=== PATIENT | male | born 1995 | race African-American/Black ===

== ENCOUNTER 2018-11-05 14:23 | Inpatient (IN) ==
--- NOTE | 2018-11-05 14:50 | Emergency Department Note ---
Disposition Clinical Impression: Pneumothorax on left Disposition: Admitted As Inpatient Condition: Good Time of Disposition: 15:49 General Adult HPI - General Chief complaint: ED Shortness of Breath/Dyspnea Time Seen by Provider: 11/05/18 14:27 Source: patient Mode of arrival: EMS Limitations: no limitations Nursing Notes Reviewed: Yes Vital Signs Reviewed: Yes - History of Present Illness HPI Narrative: Patient is a 23-year-old male who is presenting for shortness of breath. Patient with no past medical history, he has a chronic smoker. Patient states that he was sitting at [employer], turned to his left, immediately had chest pain to the left side of his chest with shortness of breath. Patient was seen at [facility], at that point in time I did a chest x-ray which showed a pneumothorax to the left side. He was sent here for further definitive treatment and care. Patient at this point in time denies any further pain other than left sided chest pain, he has slight shortness of breath, no recent fevers, chills or history of pneumothorax in the past. Pain Scale: 10 - Related Data Home Medications Medication Instructions Recorded Confirmed No Known Home Drugs 11/05/18 11/05/18 Allergies Allergy/AdvReac Type Severity Reaction Status Date / Time Amoxicillin [From Amoxil] Allergy Swelling Verified 10/03/15 14:50 of Lip/Tongue/Throat Review of Systems: In addition to that documented in the HPI above, the additional ROS was obtained: General: Denies fever. Denies chills. Denies weight loss. Denies behavioral change. Eyes: Denies visual changes. ENT: Denies nasal congestion. Denies sore throat. Denies hearing change. Cardio: Affirms chest pain. Denies palpitations. Respiratory: Denies cough. Denies shortness of breath. Denies wheezing. GI: Denies nausea, Denies vomiting, or diarrhea. Denies hematochezia denies melena. Denies abdominal pain. : Denies dysuria, hematuria, or urinary retention MSK: Denies back pain. Denies joint swelling. Neuro: Denies slurred speech. Denies numbness or tingling. Denies focal weakness . Denies headache. Denies loss of consciousness. Psych: Denies mood changes. All systems ED: reviewed and negative except as stated. Review of Systems: As Per HPI Past Medical History - Past Medical History Medical history: Reports: no medical history Psychiatric history: Reports: no psych history - Social History Smoking Status: Current every day smoker Smokeless Tobacco Status: No Alcohol use: Reports: none Drug use: Reports: none Physical Exam General: Conversant. No apparent distress. Follow commands. Appears stated age. Neck: No JVD. Trachea midline. Neck supple. Eyes: PERRL. No scleral icterus. HENT: Normocephalic and atraumatic. Moist mucus membranes. Cardiovascular: Regular rate and rhythm. Normal S1 and S2. No murmurs appreciated. Normal capillary refill. Extremities well perfused with 2+ distal pulses bilaterally. No edema. Pulmonary: Patient with absent breath sounds to the left side, right-sided breath sounds are clear to auscultation. No wheezes, rales, or rhonchi. Not in respiratory distress. Speaks in full sentences. Abdomen: Soft, nondistended, without tenderness. No bruits or masses. No guarding or rebound. Neuro: Alert and oriented x3. No slurred speech. No focal deficits noted. Skin: No rashes noted on visualized skin. Musculoskeletal: No bony abnormalities visualized. Moves all extremities. Psych: Normal mood. Pleasant. Makes appropriate eye contact. - General General appearance: alert Course Vital Signs Temperature 98.2 F 11/05/18 14:33 Pulse Rate 101 11/05/18 14:33 Respiratory Rate 24 11/05/18 14:33 Blood Pressure 100/60 11/05/18 14:33 O2 Sat by Pulse Oximetry 100 11/05/18 14:33 Temperature 98.2 F 11/05/18 14:33 Pulse Rate 68 11/05/18 16:13 Respiratory Rate 22 11/05/18 16:13 Blood Pressure 119/76 11/05/18 16:13 O2 Sat by Pulse Oximetry 100 11/05/18 16:13 Oxygen Delivery Oxygen Delivery Nasal Cannula Procedures - Chest Tube Chest Tube 1 Chest Tube Location: mid axillary line Size of Tube (cm): 8 Chest Tube Prep: betadine prep, sterile drapes applied Local Anesthetic: lidocaine 1% Amount of Anesthesia Used (mL): 6 Incision Made With: #10 blade Post Procedure: sutured to skin, sterile dressing applied Tube Drainage: none Post Procedure CXR?: Yes Patient Tolerated Procedure: Yes Medical Decision Making - [facility] Narrative Medical decision making narrative: Patient is a 23-year-old male who presented with spontaneous pneumothorax. On arrival, patient is regular rate and rhythm, with no sensation of breath sounds to the left side, he is normotensive and in no acute distress. Chest x-ray was obtained from [facility] which showed a pneumothorax to the left side, chest tube was placed without difficulty without complications. My attending spoke with Dr. Hastings who agrees the patient as consult. EKG shows no acute ischemic changes. Patient otherwise tolerated procedure well was given 50mcg of fentanyl prior to the procedure. At this point in time, patient will be admitted to the hospitalist for further treatment and evaluation. Patient otherwise stable. - Medical Records Medical records reviewed: Yes I reviewed the patient's medical records. - Radiology Data Radiology results reviewed: Yes I reviewed the patient's radiology results. - EKG Data EKG #1 EKG attestation: Yes I reviewed and interpreted this EKG. EKG results narrative: Patient with sinus rhythm, normal sinus, no ST segment elevation or depression. Attestation Statement - Attestation Attestation: I, Don Rodríguez DO, examined this patient [id number] and my medical decision-making was reviewed with Dr. Mima Cornelius , Resident Physician. I agree with the documented findings, disposition and treatment plan as described except to the extent set forth below. I personally supervised and was present for the stark/critical portions of the procedures completed by the resident do cumented below. Please see my progress notes for details.
[2018-11-05] MEDS ORDERED: Ondansetron 4 MG/2 ML VIAL IVP ONE (15:03)
[2018-11-05] MEDS ORDERED: *HR* FentaNYL (PF) 100 MCG/2 ML VIAL IVP ONE (15:04)
--- NOTE | 2018-11-05 15:04 | Emergency Department Note ---
Disposition Clinical Impression: Pneumothorax on left Disposition: Admitted As Inpatient Condition: Good Referrals: NONE,PCP [Primary Care Provider] - Forms: ED Satisfaction Letter Time of Disposition: 15:55 General Adult HPI - General Chief complaint: ED Shortness of Breath/Dyspnea Time Seen by Provider: 11/05/18 14:27 Source: patient Mode of arrival: EMS Limitations: no limitations - History of Present Illness Pain Scale: 10 - Related Data Home Medications Medication Instructions Recorded Confirmed No Known Home Drugs 11/05/18 11/05/18 Allergies Allergy/AdvReac Type Severity Reaction Status Date / Time Amoxicillin [From Amoxil] Allergy Swelling Verified 10/03/15 14:50 of Lip/Tongue/Throat Past Medical History - Past Medical History Medical history: Reports: no medical history Psychiatric history: Reports: no psych history - Social History Smoking Status: Current every day smoker Smokeless Tobacco Status: No Alcohol use: Reports: none Drug use: Reports: none Physical Exam - General Limitations: no limitations General appearance: alert Course Vital Signs Temperature 98.2 F 11/05/18 14:33 Pulse Rate 101 11/05/18 14:33 Respiratory Rate 24 11/05/18 14:33 Blood Pressure 100/60 11/05/18 14:33 O2 Sat by Pulse Oximetry 100 11/05/18 14:33 Temperature 98.2 F 11/05/18 14:33 Pulse Rate 107 11/05/18 14:55 Respiratory Rate 26 11/05/18 14:55 Blood Pressure 115/82 11/05/18 14:55 O2 Sat by Pulse Oximetry 98 11/05/18 14:55 Oxygen Delivery Oxygen Delivery Room Air Critical Care Time Critical Care Time: Yes Total Critical Care Time: 35 Attestation: Critical care performed: Time is exclusive of separately billable procedures. Time includes: direct patient care, patient reassessment, coordination of patient care, interpretation of data (laboratory data, radiology data, and respiratory data), review of patient's medical records, medical consultation and documentation of patient care. Procedures included in critical care time: Procedures excluded from critical care time: Attestation Statement - Attestation Attestation: I, Don Rodríguez DO, examined this patient [id number] and my medical decision-making was reviewed with Dr. Mima Cornelius , Resident Physician. I agree with the documented findings, disposition and treatment plan as described except to the extent set forth below. I personally supervised and was present for the stark/critical portions of the procedures completed by the resident documented below. Please see my progress notes for details. 23-year-old male transferred from an outside urgent care for evaluation of spontaneous left-sided pneumothorax. Patient was eating food today and turned t o left reaching with his arm and felt a pop in his lung and acutely at chest pain. Patient denies any specific history of this at this time. He denies any recent fevers or chills. Denies any cough cold congestion. Denies any headache or vision change. Currently denying nausea vomiting or diarrhea. He does have slight increased work of breathing based on the pain in his chest wall. He has no family history of Marfan's, related and was or other connective tissue diseases. He does smoke marijuana at baseline which could be attributed to the presentation here today. Otherwise he has no other complaints or issues. Patient's vital signs are stable during transport outside of tachypnea. X-ray was uploaded onto our system from outside facility and reviewed. Possibly 70% pneumothorax noted with no signs of tension presentation this point. No signs of fracture trauma or injury to the chest wall. Patient otherwise denying any other complaints or issues. He has no other medical history at this time. Chest x-ray will be ordered for postprocedural evaluation. Bedside ultrasound was completed to confirm the lack of lung sliding. Patient otherwise has diminished breath sounds and no breath sounds noted on the left side. Lung is regular on the right. Heart is regular. Abdomen is soft. Head is atraumatic. No signs of neurologic deficit or abnormality. Patient has no described bleeding related disorders or congenital related abnormalities. Verbal consent was obtained for the procedure to perform tube thoracostomy procedure for resolution of the left-sided pneumothorax. The patient consented with good understanding of all the risks of the procedure. Fluids pain medication nausea medication as been ordered. The on-call cardiothoracic surgeon Dr. Hastings was also contacted and did recommend admission to the hospitalist at the procedure was completed. Patient will have the pneumonia better placed and admission processes established. See detailed documentation the physical exam, medical intervention, medical decision-making disposition in the resident physician's note. EKG was reviewed by myself in documented in the resident physician's chart. 35 minutes of critical care applied the patient's treatment course secondary to the multidisciplinary intervention as well as the management of pneumothorax 1321 Patient tolerated the procedure well. Almost complete resolution of the pneumothorax is noted with the pigtail. The suction catheter was placed to intermittent low wall suction. Patient will be admitted. There is some discussion between the hospitalist and cardiothoracic sister will be admitted and they will determine the disposition plan. The patient will be transitioned over to the admission process at this point with no other intervention required. Patient stable to time of admission
[2018-11-05] MEDS ORDERED: 0.9 % Sodium Chloride 1,000 ML IVC SCH (15:15)
[2018-11-05] MEDS ORDERED: Ondansetron 4 MG/2 ML VIAL IVP PRN (16:38)
[2018-11-05] MEDS ORDERED: Naloxone 0.4 MG/ML INJ IVP PRN (16:38)
--- NOTE | 2018-11-05 16:50 | Internal Med History&Physical ---
Date of Encounter: 11/05/18 Time of Encounter: 16:25 Internal Medicine - H&P: HPI Chief complaint: shortness of breath Admitted From: Home Plans for Post Hospital Care: Home History of present illness: Mr. Jimenez is a 23 year old male with PMH of tobacco abuse and marijuana abuse who was sent to the ER from urgent care for concern for left sided pneumothorax. Patient was seen by the ER physician immediately, a left sided chest tube was placed, CXR reported resolution of left pneumothorax. CT surgery was consulted for further management. Hospitalist service was further consulted for admitting the patient to the hosp ital. Patient seen and examined with family present at bedside. He is breathing comfortably on nasal cannula. Reports of severe pain at the chest tube site but denies any chest pain, palpitations, abd pain,n/v, fever, or chills. He denies any prior hx of such an occurrence and states he was in his usual state of health earlier today, and was at [facility], when he heard a pop in his chest with severe pain and shortness of breath. Reports of smoking 1.5ppd and marijuana daily. Denies any other illicit drug use. Ten point ROS is negative except as listed above Past Med Surg Social Fam HX - Past Medical History Medical history: no medical history Psychiatric history: no psych history - Social History Smoking Status: Current every day smoker Smokeless Tobacco Status: No Alcohol use: none Drug use: none Internal Medicine - H&P: Meds No Known Home Drugs 11/05/18 [History] Allergy/AdvReac Type Severity Reaction Status Date / Time Amoxicillin [From Amoxil] Allergy Swelling Verified 10/03/15 14:50 of Lip/Tongue/Throat All Systems PM: A 10-system review of systems was performed and is negative for pertinent findings except as documented above in the HPI. Review of systems: Ten point ROS is negative except as listed in HPI - Constitutional Vitals: Temp Pulse Resp BP Pulse Ox 98.2 F 68 22 119/76 100 11/05/18 14:33 11/05/18 16:13 11/05/18 16:13 11/05/18 16:13 11/05/18 16:13 Exam: General: AAO x 3, in painful distress HEENT: EOMI, PERRLA, NC/AT, no scleral icterus Respiratory: Left chest tube in place, equal air entry bilaterally, no wheezing, no tachypnea Cardiovascular: Regular, Rate, Rhythm, No murmurs GI: Soft, Non tender, non distended, normal bowel sounds Ext: No edema, no tenderness, positive pulses Neuro: AAO x 3, no focal deficits, CN II-XII grossly intact Rest of the clinical exam is noncontributory Internal Med - H&P Results - Impressions ITS Impressions Chest X-Ray 11/05/18 15:38 IMPRESSION: Interval left hemithorax pleural catheter placement with the tip extending to the apex with resolution of the pneumothorax. D/ / 11/05/2018 16:20:44 Toan June MD / dom Interpreting Provider: Toan June MD - Summary of Assessment and Plan Summary of Assessment and Plan: Mr. Jimenez is a 23 year old male with PMH of tobacco abuse and marijuana abuse who was sent to the ER from urgent care for concern for left sided pneumothorax. Assessment/Plan: 1. Spontaneous Pneumothorax on the left s/p left chest tube placement repeat CXR reports resolution of Pneumothorax CT surgery consult has been requested management of chest tube as per CT surgery pain control and anti-emetic support as needed closely monitor respiratory status O2 support as needed monitor O2 saturation, goal O2 saturation > 94% 2. Tobacco abuse/Marijuana abuse Smoking and Marijuana cessation counseling provided patient is ready to quit smoking but not marijuana refused nicotine supplementation DVT ppx: Early ambulation STAT CBC, CMP, INR/PT ordered, will f/u results. LOS > 2 midnights Code status: Full code Care plan discussed with patient/family - Time Spent With Patient Total time spent is greater than 50% in coordination of care (as documented) at patient's floor/unit and/or counseling patient:
[2018-11-05 17:12] LABS: Basophils % 0.2 %; Eosinophils % 0.1 %; Hematocrit 46.8 % (37.5-50.1); Hemoglobin 15.5 g/dL (12.9-16.9); Immature Granulocytes % 0.4 % (0-4); Lymphocytes % 6.9 %; Mean Corpuscular HGB Conc 33.1 g/dL (31.6-35.5); Mean Corpuscular Hemoglobin 29.2 pg (28.0-33.3); Mean Corpuscular Volume 88.3 fL (83.0-100.0); Mean Platelet Volume 10.1 fL (9.4-12.4); Monocytes # 0.8 K/mcL (0.0-1.3); Monocytes % 5.5 %; Neutrophils # 13.1 K/mcL (1.6-8.9); Platelet Count 274 K/mcL (140-400); Red Cell Distribution Width 13.8 % (11.5-14.5); Segmented Neutrophils % 86.9 %; White Blood Count 15.1 K/mcL (4.3-11.1)
[2018-11-05 17:19] LABS: INR 1.1
[2018-11-05] MEDS: Ketorolac 30 MG/ML VIAL IVP PRN (17:19)
[2018-11-05 17:31] LABS: Alanine Aminotransferase 13 Units/L (7-52); Albumin 4.8 g/dL (3.5-5.7); Albumin/Globulin Ratio 2.3 (1.1-2.2); Alkaline Phosphatase 52 Units/L (34-104); Aspartate Amino Transferase 16 Units/L (13-39); BUN/Creatinine Ratio 8 (6-26); Bilirubin,Total 1.3 mg/dL (0.3-1.0); Blood Urea Nitrogen 7 mg/dL (6-20); Calcium 9.2 mg/dL (8.6-10.3); Carbon Dioxide 26 mEq/L (23-29); Chloride 108 mEq/L (98-107); Globulin 2.1 g/dL (2.4-3.5); Glucose 98 mg/dL (70-105); Magnesium 2.1 mg/dL (1.6-2.6); Osmolality,Calculated 290 (280-300); Phosphorous 2.7 mg/dL (2.7-4.5); Sodium 141 mEq/L (136-145); Total Protein 6.9 g/dL (6.4-8.9); eGFR For African Americans > 60 (> 60); eGFR For Non-African Americans > 60 (> 60)
[2018-11-05] MEDS ORDERED: traMADol 50 MG TABLET PO ONE (20:08)
[2018-11-06] MEDS: Ketorolac 30 MG/ML VIAL IVP PRN (06:35)
[2018-11-06 06:43] LABS: Basophils % 0.2 %; Eosinophils # 0.1 K/mcL (0.0-0.6); Eosinophils % 1.1 %; Hematocrit 42.7 % (37.5-50.1); Hemoglobin 14.2 g/dL (12.9-16.9); Immature Granulocytes % 0.2 % (0-4); Lymphocytes # 2.5 K/mcL (0.6-4.6); Lymphocytes % 26.9 %; Mean Corpuscular HGB Conc 33.3 g/dL (31.6-35.5); Mean Corpuscular Hemoglobin 29.6 pg (28.0-33.3); Mean Platelet Volume 9.8 fL (9.4-12.4); Monocytes # 0.9 K/mcL (0.0-1.3); Monocytes % 10.2 %; Neutrophils # 5.7 K/mcL (1.6-8.9); Platelet Count 232 K/mcL (140-400); Red Cell Distribution Width 13.6 % (11.5-14.5); Segmented Neutrophils % 61.4 %; White Blood Count 9.2 K/mcL (4.3-11.1)
[2018-11-06 07:04] LABS: BUN/Creatinine Ratio 8 (6-26); Blood Urea Nitrogen 7 mg/dL (6-20); Calcium 9.1 mg/dL (8.6-10.3); Carbon Dioxide 27 mEq/L (23-29); Chloride 107 mEq/L (98-107); Glucose 103 mg/dL (70-105); Osmolality,Calculated 288 (280-300); Phosphorous 3.5 mg/dL (2.7-4.5); Potassium 3.7 mEq/L (3.5-5.1); Sodium 140 mEq/L (136-145); eGFR For African Americans > 60 (> 60); eGFR For Non-African Americans > 60 (> 60)
[2018-11-06] MEDS ORDERED: traMADol 50 MG TABLET PO PRN (10:40)
--- NOTE | 2018-11-06 10:43 | Internal Med Progress Note ---
Hospitalist Progress Note - Encounter Date of Encounter: 11/06/18 Time of Encounter: 10:40 - Subjective Interval History: Patient seen and examined earlier this morning with girlfriend present at bedside. pt and his girlfriend laying in bed and patient states his pain is improved compared to previous day Denies any shortness of breath. Reports of pain at the chest tube site. No overnight events reported. - Exam Vitals: Temp Pulse Resp BP Pulse Ox 98.1 F 63 14 115/87 95 11/06/18 06:00 11/06/18 06:00 11/06/18 06:00 11/06/18 06:00 11/06/18 06:00 Exam: General: AAO x 3, in painful distress HEENT: EOMI,NC/AT, no scleral icterus Respiratory: Left chest tube in place, equal air entry bilaterally, no wheezing, no tachypnea Cardiovascular: Regular, Rate, Rhythm, No murmurs GI: Soft, Non tender, non distended, normal bowel sounds Ext: No edema, no tenderness, positive pulses Neuro: AAO x 3, no focal deficits Rest of the clinical exam is noncontributory - Summary of Assessment and Plan Summary of Assessment and Plan: Mr. Jimenez is a 23 year old male with PMH of tobacco abuse and marijuana abuse who was sent to the ER from urgent care for concern for left sided pneumothorax. Assessment/Plan: 1. Spontaneous Pneumothorax on the left s/p left chest tube placement repeat CXR reports resolution of Pneumothorax CT surgery consult has been requested management of chest tube as per CT surgery pain control and anti-emetic support as needed closely monitor respiratory status O2 support as needed monitor O2 saturation, goal O2 saturation > 94% 2. Tobacco abuse/Marijuana abuse Smoking and Marijuana cessation counseling provided patient in agreement with smoking and marijuana cessation refused nicotine supplementation DVT ppx: Early ambulation Care plan discussed with patient/RN - Time Spent with Patient Total time spent is greater than 50% in coordination of care (as documented) at patient's floor/unit and/or counseling patient: Internal Medicine: Result - Labs CBC & Chem 7: 11/06/18 06:26 11/06/18 06:26 Labs: Short CBC 11/05/18 11/06/18 Range/Units 16:59 06:26 WBC 15.1 H 9.2 (4.3-11.1) K/mcL Hgb 15.5 14.2 (12.9-16.9) g/dL Hct 46.8 42.7 (37.5-50.1) % Plt Count 274 232 (140-400) K/mcL Neutrophils # 13.1 H 5.7 (1.6-8.9) K/mcL BMP 11/05/18 11/06/18 16:59 06:26 Sodium 141 140 Potassium 4.0 3.7 Chloride 108 H 107 Carbon Dioxide 26 27 BUN 7 7 Creatinine 0.88 0.84 Glucose 98 103 Calcium 9.2 9.1 Liver Function 11/05/18 Range/Units 16:59 Total Bilirubin 1.3 H (0.3-1.0) mg/dL AST 16 (13-39) Units/L ALT 13 (7-52) Units/L Alkaline Phosphatase 52 (34-104) Units/L Albumin 4.8 (3.5-5.7) g/dL - ABG Interpretation ABG results: PT/INR, D-dimer PT 13.0 Seconds (9.4-12.1) H 11/05/18 16:59 - Impressions Impressions Chest X-Ray 11/05/18 15:38 IMPRESSION: Interval left hemithorax pleural catheter placement with the tip extending to the apex with resolution of the pneumothorax. D/ / 11/05/2018 16:20:44 Toan June MD / dom Interpreting Provider: Toan June MD Consult Discharge Plan - Plan Referrals: NONE,PCP [Primary Care Provider] -
--- NOTE | 2018-11-06 10:45 | Cardiothoracic Consult Note ---
Date of Encounter: 11/06/18 Time of Encounter: 10:16 Assessment and Plan (1) Pneumothorax on left Current Visit: Yes Status: Acute The patient is a 23-year-old man who experienced a spontaneous left pneumothorax yesterday. A chest tube was inserted at [facility] emergency department and the patient has had near-complete resolution of his pneumothorax. On examination today the patient has no air leak. The chest tube should remain on suction while he is in bed or sitting in a chair in the hospital room, though the patient may ambulate in the hallways off suction. The chest x-ray will be repeated in the morning. The assessment and plan as outlined above was discussed with the patient and/or family members who expressed understanding and agreement. All questions were answered. - History of Present Illness Consult date: 11/05/18 Requesting physician: Chanda Brush Consult reason: Chest tube management Chief complaint: Left spontaneous pneumothorax History of present illness: Mr. Jimenez is a 23 year old otherwise healthy man who had sudden onset of left- sided chest pain while eating at a local restaurant. The patient was evaluated at an urgent care facility and a chest x-ray revealed a large left pneumothorax. He was transferred to [facility] for chest tube insertion. The chest tube was inserted in the emergency department and the patient had near complete resolution of his left pneumothorax. Past Med Surg Social Fam HX - Past Medical History Medical history: no medical history Psychiatric history: no psych history - Past Surgical History Surgical History: no surgical history - Social History Smoking Status: Current every day smoker Packs per day: 1PPD Smokeless Tobacco Status: No Alcohol use: none Drug use: none Current living situation: Home - Independent Activity Level: Independent ambulation, Very active Recent Out of Country Travel Within the Last 8 Weeks: No Exposure or Possible Exposure to Illness During Travel: No Medications and Allergies No Known Home Drugs 11/05/18 [History] Allergy/AdvReac Type Severity Reaction Status Date / Time Amoxicillin [From Amoxil] Allergy Swelling Verified 10/03/15 14:50 of Lip/Tongue/Throat All Systems Review: The remainder of the systems were reviewed and are negative Physical Examination General: Conversant, No Apparent Distress HEENT: Atraumatic, Normocephaly, Trachea midline Neck: No JVD, Normal carotid pulses Cardiac: Reg Rate and Rhythm, Normal S1 and S2, No Murmur Lungs: Normal Breath Sounds, No Wheeze, Rales, Rhonchi Neuro: Alert and responsive, No focal deficits noted, Motor nerves intact, Sensory nerves intact Vascular: Normal capillary refill Abdomen: Soft, Non-tender Skin: No rashes noted on visualized skin Musculoskeletal: Other (Left chest tube present in the left midaxillary line on suction without air leak.) Extremities: No Clubbing, No Cyanosis, No Edema, Normal Pulses Results 11/06/18 06:26 11/06/18 06:26 Lab Results, Last 24 hours 11/05/18 11/05/18 11/05/18 16:59 16:59 16:59 WBC 15.1 H Hgb 15.5 Hct 46.8 Plt Count 274 INR 1.1 Sodium 141 Potassium 4.0 Chloride 108 H Carbon Dioxide 26 BUN 7 Creatinine 0.88 Glucose 98 Calcium 9.2 Magnesium 2.1 Total Bilirubin 1.3 H AST 16 ALT 13 Alkaline Phosphatase 52 11/06/18 11/06/18 06:26 06:26 WBC 9.2 Hgb 14.2 Hct 42.7 Plt Count 232 INR Sodium 140 Potassium 3.7 Chloride 107 Carbon Dioxide 27 BUN 7 Creatinine 0.84 Glucose 103 Calcium 9.1 Magnesium 2.0 Total Bilirubin AST ALT Alkaline Phosphatase Consult Discharge Plan - Plan Referrals: NONE,PCP [Primary Care Provider] -
[2018-11-06] MEDS: *HR* OxyCODONE/APAP 5/325 TABLET PO PRN ×3 (11:17→20:28)
[2018-11-07] MEDS: Ketorolac 30 MG/ML VIAL IVP PRN (04:58)
--- NOTE | 2018-11-07 08:32 | Cardiothoracic Progress Note ---
Date of Encounter: 11/07/18 Time of Encounter: 08:31 - Assessment and plan (1) Acute pneumothorax Current Visit: Yes Status: Acute The assessment and plan as outlined above was discussed with the patient and/or family members who expressed understanding and agreement. All questions were answered. discussed plans of care and indications and reoccurrence of pnthx with and without surgery. clamp chest tube tonight at midnight, orders written. chest x ray in am, orders written. Vital Signs, Last 4 Hours Temp Pulse Resp BP Pulse Ox 11/07/18 07:32 98.5 F 65 16 110/69 11/07/18 04:38 110/68 11/07/18 04:32 98.4 F 53 17 90/52 96 Oxgyen Flow Rate Oxygen Flow Rate (LPM) 3 Clinical Data, last 8 Hours Output, Urine Amount 0 Weight 11/05/18 11/06/18 11/07/18 23:59 23:59 23:59 Weight 58 kg 58 kg 57.3 kg - Physical Examination General: Conversant, No Apparent Distress, Well developed, Well nourished HEENT: Atraumatic, Normocephaly Cardiac: Reg Rate and Rhythm, Normal S1 and S2 Incision: No signs of infection, Dry/intact dressing Chest tubes: Minimal drainage Lungs: Normal Breath Sounds Neuro: Alert and responsive, No focal deficits noted, Cranial nerves intact, Motor nerves intact - Labs 11/06/18 06:26 11/06/18 06:26 - Imaging Chest Xray: image reviewed Consult Discharge Plan - Plan Referrals: NONE,PCP [Primary Care Provider] -
[2018-11-07] MEDS: *HR* Heparin 5,000 UNIT/ML VIAL SQ SCH ×3 (08:42→22:07)
[2018-11-07] MEDS: *HR* OxyCODONE/APAP 5/325 TABLET PO PRN ×2 (08:42→13:25)
--- NOTE | 2018-11-07 10:57 | Internal Med Progress Note ---
Hospitalist Progress Note - Encounter Date of Encounter: 11/07/18 Time of Encounter: 08:30 - Subjective Interval History: patient was seen and examined at bedside. has no complaints. denies CP, SOB has improved significantly. pain is controlled. tolerating Po diet. all questions answered. - Exam Vitals: Temp Pulse Resp BP Pulse Ox 98.5 F 65 16 110/69 96 11/07/18 07:32 11/07/18 07:32 11/07/18 07:32 11/07/18 07:32 11/07/18 04:32 Exam: General: AAO x 3, in painful distress HEENT: EOMI,NC/AT, no scleral icterus Respiratory: Left chest tube in place, equal air entry bilaterally, no wheezing, no tachypnea Cardiovascular: Regular, Rate, Rhythm, No murmurs GI: Soft, Non tender, non distended, normal bowel sounds Ext: No edema, no tenderness, positive pulses Neuro: AAO x 3, no focal deficits Rest of the clinical exam is noncontributory - Assessment and Plan (1) Acute pneumothorax Current Visit: Yes Status: Acute Assessment and Plan: s/p left sided chest tube placement management as per CT surgery. CXR from 11/07- IMPRESSION: No evidence for pneumothorax. (2) Smoker Current Visit: Yes Status: Acute Assessment and Plan: Smoking and Marijuana cessation counseling provided extensively - understands patient in agreement with smoking and marijuana cessation refused nicotine supplementation (3) DVT prophylaxis Current Visit: Yes Status: Acute Assessment and Plan: heparin sc - Time Spent with Patient Total time spent is greater than 50% in coordination of care (as documented) at patient's floor/unit and/or counseling patient: 25 - 35 minutes Plan of Care Discussed with: patient Internal Medicine: Result - Labs CBC & Chem 7: 11/06/18 06:26 11/06/18 06:26 - ABG Interpretation ABG results: PT/INR, D-dimer PT 13.0 Seconds (9.4-12.1) H 11/05/18 16:59 - Impressions Impressions Chest X-Ray 11/07/18 06:00 IMPRESSION: No evidence for pneumothorax. D/ / Iván Alarcon MD / Iván Alarcon MD Interpreting Provider: Iván Alarcon MD Consult Discharge Plan - Plan Referrals: NONE,PCP [Primary Care Provider] -
[2018-11-08 06:57] VITALS: BP 94/56
[2018-11-08] MEDS: *HR* Heparin 5,000 UNIT/ML VIAL SQ SCH (07:19)
[2018-11-08] MEDS: *HR* OxyCODONE/APAP 5/325 TABLET PO PRN (09:32)
--- NOTE | 2018-11-08 09:43 | Cardiothoracic Progress Note ---
Date of Encounter: 11/08/18 Time of Encounter: 09:41 - Assessment and plan (1) Acute pneumothorax Current Visit: Yes Status: Acute The assessment and plan as outlined above was discussed with the patient and/or family members who expressed understanding and agreement. All questions were answered. removed drain. reviewed post discharge care with patient and girlfriend with nurse santiago in the room. follow up with me in 2 weeks with a chest xray. - Subjective Interval history: slept well negative ros Vital Signs, Last 4 Hours Temp Pulse Resp BP Pulse Ox 11/08/18 06:44 98.3 F 52 12 94/56 96 Oxgyen Flow Rate Oxygen Flow Rate (LPM) 3 Clinical Data, last 8 Hours Output, Chest Tube Drainage 0 Amount [Left Chest Tube] Output, Urine Amount 0 Weight 11/06/18 11/07/18 11/08/18 23:59 23:59 23:59 Weight 58 kg 57.3 kg 54 kg - Physical Examination General: Conversant, No Apparent Distress, Well developed, Well nourished HEENT: Atraumatic Cardiac: Reg Rate and Rhythm, Normal S1 and S2 Incision: No signs of infection, Dry/intact dressing Chest tubes: Other (nop ptthx on chest xray ) Lungs: Normal Breath Sounds Neuro: Alert and responsive, No focal deficits noted, Cranial nerves intact - Labs 11/06/18 06:26 11/06/18 06:26 - Imaging Chest Xray: image reviewed Consult Discharge Plan - Plan Referrals: NONE,PCP [Primary Care Provider] -
--- NOTE | 2018-11-08 09:52 | Discharge Summary ---
- NOTES TO OUTPATIENT PROVIDER Notes to Outpatient Provider: follow Antionette Gracia in 2 weeks with CXR Date of Encounter: 11/08/18 Time of Encounter: 09:48 - Discharge Diagnosis (1) Acute pneumothorax Priority: Primary Status: Acute (2) Smoker Priority: Secondary Status: Acute (3) DVT prophylaxis Priority: Secondary Status: Acute Hospital course: " Mr. Jimenez is a 23 year old male with PMH of tobacco abuse and marijuana abuse who was sent to the ER from urgent care for concern for left sided pneumothorax. Patient was seen by the ER physician immediately, a left sided chest tube was placed, CXR reported resolution of left pneumothorax. CT surgery was consulted for further management. Hospitalist service was further consulted for admitting the patient to the hospital. Patient seen and examined with family present at bedside. He is breathing comfortably on nasal cannula. Reports of severe pain at the chest tube site but denies any chest pain, palpitations, abd pain,n/v, fever, or chills. He denies any prior hx of such an occurrence and states he was in his usual state of health earlier today, and was at [facility], when he heard a pop in his chest with severe pain and shortness of breath. Reports of smoking 1.5ppd and marijuana daily. Denies any other illicit drug use. " patient presented secondary to above presentation. CT surgery was consulted and chest tube was managed and then removed on 11/08/18-.it was recommended that he follow up with CT surgery in 2 weeks with repeat CXR. Smoking and Marijuana cessation counseling provided extensively - understands patient in agreement with smoking and marijuana cessation refused nicotine supplementation nursing staff aware to provide him with follow up appointment. CXR on 11/08/18- IMPRESSION: No residual pneumothorax. Stable left pleural catheter positioning. Discharge discussed with: patient, family, nurse, professional services consultant Time spent discussing smoking cessation with patient: more than 10 minutes - Time Spent with Patient Total time spent providing and/or coordinating discharge services: Time spent: Less than 30 minutes - Discharge Medications Prescriptions: No Action No Known Home Drugs 1 each .ROUTE AD each Home Medications: No Known Home Drugs 11/05/18 [History] Allergies/Adverse Reactions: Allergy/AdvReac Type Severity Reaction Status Date / Time Amoxicillin [From Amoxil] Allergy Swelling Verified 05/19/16 14:50 of Lip/Tongue/Throat Date of admission: 11/05/18 17:27 Primary care physician: PCP NONE Consults: 11/05/18 15:08 Consult to Cardiothoracic Surgery [CONS] Stat Consulting Provider: [facility] [place] Reason for Consult: pneumothorax Call Completed: Yes - Constitutional Vitals: Temp Pulse Resp BP Pulse Ox 98.3 F 52 12 94/56 96 11/08/18 06:44 11/08/18 06:44 11/08/18 06:44 11/08/18 06:44 11/08/18 06:44 Exam: General: AAO x 3, NAD, speaks in full sentences, thin HEENT: EOMI,NC/AT, no scleral icterus Respiratory: equal air entry bilaterally, no wheezing Cardiovascular: Regular, Rate, Rhythm, No murmurs GI: Soft, Non tender, non distended, normal bowel sounds Ext: No edema, no tenderness, positive pulses Neuro: AAO x 3, no focal deficits Rest of the clinical exam is noncontributory - Patient Status Disposition: Home, Self-Care Condition: Good Functional capacity at discharge: independent ambulation Overall status at discharge: patient is back to baseline - Discharge Instructions Follow Up With: NONE,PCP [Primary Care Provider] - Jose Angel Gracia MD [Partnered Physician] - - Diet and Activity Activity: increase activity as tolerated (with restriction discussed by CT surgery ) Diet: advance to your usual diet
--- NOTE | 2018-11-09 12:03 | Electrocardiograph Report ---
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
== END 2018-11-08 10:25 | disposition home or self-care (01) | DRG 143 ==
LOC: EMEROOARM 14:23 → 2NENU 14:23 → SUATTDRO 17:27
PROVIDERS: ADMIT Internal Medicine Nephrology; ATTEND Internal Medicine